=== PATIENT | male | born 1940 | race Caucasian/White ===

== ENCOUNTER 2017-04-16 12:38 | Inpatient (IN) | payer MEDICARE, BC ==
[~2017-04-16] VITALS: Ht 175.3 cm; Wt 115.0 kg
[~2017-04-16 12:38] MED LIST: APIX5TAB PO; ATOR80TA41 PO; BENI20TA26 PO; DULO20 PO; FOLI5CAP PO; GABA600T PO; HUMALOGP SQ; LANO0.2510 PO; LANTUSP SQ; LEVO.1 PO; LORTA5 PO; MAGN400T PO; MECL-62 PO; OMPR20CCR PO; TRAV0.00 EACH EYE; VICT18IN SQ; VITA200017 PO
[2017-04-16] MEDS ORDERED: IOHEXOL 350 MG/ML 10 ML VIAL (for RAD DIAG) IVCONTRAST ONE (12:39)
[2017-04-16] MEDS ORDERED: SODIUM CHLORIDE 0.9% FLUSH 10 ML FLUSH IV FLUSH PRN (13:00)
[2017-04-16] MEDS ORDERED: MORPHINE SULFATE 4 MG/ML INJ IV PUSH ONE (13:00)
[2017-04-16] MEDS ORDERED: ONDANSETRON HCL 4 MG/2 ML VIAL IVP ONE (13:00)
--- NOTE | 2017-04-16 13:14 | PD ---
HPI Chief Complaint: Abdominal Pain Time Seen by Provider: 12:48 Travel History International Travel<30 days: No Contact w/Intl Traveler<30days: No History of Present Illness HPI 76 YO M with PMH of ankylosing spondylosis, CVA, DM, a fib, HTN on Eliquis presents to the ED for evaluation of 2 week history of abdominal pain. Patient states that the pain is crampy in nature. Moves throughout the abdomen. No alleviating or exacerbating factors reported. Patient endorses occasional constipation, last BM 2 days ago. He states " I never look at my stool." He endorses increased abdominal bloating, decreased appetite, nausea. He denies melena, hematochezia. He denies CP, SOB, vomiting. He endorses history of laparoscopic appendectomy. He was seen at his endocrinologists office this morning. They noted jaundice and called EMS to transport the patient to the ED. PFSH Past Medical History Hx Anticoagulant Therapy: Yes (ELIQUIS) Arthritis: Yes (ANKYLOSING SPONDYLITIS AND CONNECTIVE TISSUE.) Asthma: Yes Atrial Fibrillation: Yes Anxiety: Yes Depression: Yes Heart Rhythm Problems: Yes (A-FIB) Cancer: Yes (SKIN CANCER) Cardiac Catheterization: Yes Cardiovascular Problems: Yes High Cholesterol: Yes Chemotherapy: No Chest Pain: Yes Congestive Heart Failure: Yes COPD: Yes Cerebrovascular Accident: Yes Coronary Artery Disease: Yes Diabetes: Yes Diminished Hearing: No Endocrine: Yes Gastrointestinal Disorders: Yes GERD: Yes (TAKES PRILOSEC) Glaucoma: Yes Genitourinary: Yes Headaches: Yes (ONCE IN A WHILE) Hiatal Hernia: Yes Hypertension: Yes (UNDER CONTROL) Immune Disorder: No Kidney Stones: No Musculoskeletal: Yes Neurologic: No Psychiatric: Yes (1970S) Reproductive: No Respiratory: Yes Radiation Therapy: No Seizures: No Sickle Cell Disease: No Sleep Apnea: Yes Thyroid Disease: Yes (HYPO) Ulcer: No Past Surgical History Abdominal Surgery: Yes (PROSTATE BIOPSY) Arteriovenous Shunt: No Cardiac Surgery: Yes (ANGIOPLASTY) Ear Surgery: No Endocrine Surgery: No Eye Surgery: Yes (LASER BOTH EYES FOR GLAUCOMA) Genitourinary Surgery: No Gynecologic Surgery: No Insulin Pump: Yes Oral Surgery: Yes (TEETH EXTRACTION) Thoracic Surgery: No Other Surgery: Yes (SKIN CANCER REMOVED FROM CHEEK.) Social History Alcohol Use: No Tobacco Use: No Substance Use: No Allergies-Medications (Allergen,Severity, Reaction): Coded Allergies: No Known Allergies (Verified , 10/29/14) Reported Meds & Prescriptions Reported Meds & Active Scripts Active Reported Humalog Inj (Insulin Human Lispro) 1,000 Unit/10 Ml Vial 70 Units SQ BID Lantus Inj (Insulin Glargine) 1,000 Unit/10 Ml Vial 70 Units SQ BID Methotrexate 25 mg/ml Vial (Methotrexate Sodium/Pf) 25 Mg/Ml Vial 6 SQ Synthroid (Levothyroxine Sodium) 150 Mcg Tab 150 Mcg PO DAILY Olmesartan-Hydrochlorothiazide 20-12.5 Mg Tab 1 Tab PO DAILY Meclizine (Meclizine HCl) 25 Mg Tab 25 Mg PO TID PRN Magnesium (Magnesium Oxide) 400 Mg Tablet 1 Tab PO BID Hydrocodone-Acetaminophen 10-325 mg Tab 1 Tab PO Q8HR PRN Gabapentin 600 Mg Tab 600 Mg PO TID Folic Acid 0.8 Mg Tab 1,000 Mcg PO DAILY Eliquis (Apixaban) 5 Mg Tab 5 Mg PO BID Duloxetine DR (Duloxetine HCl) 60 Mg Capdr 60 Mg PO DAILY Donepezil 10 Mg Tab 10 Mg PO DAILY Diltiazem CD 24 HR 240 Mg Caper 240 Mg PO DAILY Digoxin 0.25 Mg Tab 0.25 Mg PO DAILY Atorvastatin (Atorvastatin Calcium) 40 Mg Tab 40 Mg PO HS Review of Systems Except as stated in HPI: all other systems reviewed are Neg Physical Exam Narrative GENERAL: Well-nourished, well-developed white male in no acute distress. SKIN: Focused skin assessment warm/dry, jaundiced HEAD: Normocephalic. EYES:+ scleral icterus. No injection or drainage. NECK: Supple, trachea midline. No JVD or lymphadenopathy. CARDIOVASCULAR: Regular rate and rhythm without murmurs, gallops, or rubs. RESPIRATORY: Breath sounds equal bilaterally. No accessory muscle use. GASTROINTESTINAL: Abdomen protuberant, diffusely tender. Active bowel sounds RECTAL EXAM: No masses or tenderness, stool is currently colored. Guaiac positive. MUSCULOSKELETAL: No cyanosis, or edema. BACK: Nontender without obvious deformity. No CVA tenderness. Data Data Last Documented VS Vital Signs Date Time Temp Pulse Resp B/P (MAP) Pulse Ox O2 Delivery O2 Flow Rate FiO2 04/16/17 16:08 97.6 102 17 142/55 (84) 98 Room Air Orders Orders Complete Blood Count With Diff (04/16/17 12:57) Comprehensive Metabolic Panel (04/16/17 12:57) Lipase (04/16/17 12:57) Lactic Acid (04/16/17 12:57) Prothrombin Time / Inr (Pt) (04/16/17 12:57) Act Partial Throm Time (Ptt) (04/16/17 12:57) Urinalysis - C+S If Indicated (04/16/17 12:57) Ct Abd/Pel W Iv Contrast(Rout) (04/16/17 12:57) Iv Access Insert/Monitor (04/16/17 12:57) Ecg Monitoring (04/16/17 12:57) Oximetry (04/16/17 12:57) Morphine Inj (Morphine Inj) (04/16/17 13:00) Ondansetron Inj (Zofran Inj) (04/16/17 13:00) Sodium Chloride 0.9% Flush (Ns Flush) (04/16/17 13:00) Sodium Chlor 0.9% 1000 Ml Inj (Ns 1000 M (04/16/17 13:30) Iohexol 350 Inj (Omnipaque 350 Inj) (04/16/17 12:39) Consult Gastroenterology (04/16/17 ) Consult Medical Oncology (04/16/17 ) Admit Order (Ed Use Only) (04/16/17 16:14) Type And Screen (04/16/17 16:14) Labs Laboratory Tests Test 04/16/17 13:35 04/16/17 13:37 04/16/17 15:44 White Blood Count 13.6 TH/MM3 Red Blood Count 2.81 MIL/MM3 Hemoglobin 8.1 GM/DL Hematocrit 24.8 % Mean Corpuscular Volume 88.4 FL Mean Corpuscular Hemoglobin 28.7 PG Mean Corpuscular Hemoglobin Concent 32.5 % Red Cell Distribution Width 18.5 % Platelet Count 387 TH/MM3 Mean Platelet Volume 7.5 FL Neutrophils (%) (Auto) 69.9 % Lymphocytes (%) (Auto) 13.0 % Monocytes (%) (Auto) 13.8 % Eosinophils (%) (Auto) 2.9 % Basophils (%) (Auto) 0.4 % Neutrophils # (Auto) 9.5 TH/MM3 Lymphocytes # (Auto) 1.8 TH/MM3 Monocytes # (Auto) 1.9 TH/MM3 Eosinophils # (Auto) 0.4 TH/MM3 Basophils # (Auto) 0.1 TH/MM3 CBC Comment DIFF FINAL Differential Comment Prothrombin Time 12.5 SEC Prothromb Time International Ratio 1.2 RATIO Activated Partial Thromboplast Time 28.2 SEC Lactic Acid Level 1.7 mmol/L Blood Urea Nitrogen 31 MG/DL Creatinine 1.43 MG/DL Random Glucose 123 MG/DL Total Protein 6.1 GM/DL Albumin 2.4 GM/DL Calcium Level 9.1 MG/DL Alkaline Phosphatase 338 U/L Aspartate Amino Transf (AST/SGOT) 87 U/L Alanine Aminotransferase (ALT/SGPT) 71 U/L Total Bilirubin 5.4 MG/DL Sodium Level 133 MEQ/L Potassium Level 4.9 MEQ/L Chloride Level 101 MEQ/L Carbon Dioxide Level 20.7 MEQ/L Anion Gap 11 MEQ/L Estimat Glomerular Filtration Rate 48 ML/MIN Lipase 80 U/L Urine Color YELLOW Urine Turbidity CLEAR Urine pH 5.5 Urine Specific [place] 1.014 Urine Protein NEG mg/dL Urine Glucose (UA) NEG mg/dL Urine Ketones NEG mg/dL Urine Occult Blood NEG Urine Nitrite NEG Urine Bilirubin SMALL Urine Urobilinogen LESS THAN 2.0 MG/DL Urine Leukocyte Esterase NEG Urine RBC LESS THAN 1 /hpf Urine WBC 1 /hpf Urine Hyaline Casts 1 /lpf Urine Mucus FEW /lpf Microscopic Urinalysis Comment CULT NOT INDICATED MDM Medical Decision Making Medical Screen Exam Complete: Yes Emergency Medical Condition: Yes Medical Record Reviewed: Yes Differential Diagnosis cholecystitis versus biliary colic versus liver failure versus bowel obstruction versus other Narrative Course 76 YO M with PMH of ankylosing spondylosis, CVA, DM, a fib, HTN on Eliquis presents to the ED for evaluation of 2 week history of abdominal pain. Pain is crampy in nature. Patient endorses occasional constipation, last BM 2 days ago. He endorses increased abdominal bloating, decreased appetite, nausea. He denies melena, hematochezia. He denies CP, SOB, vomiting. He endorses history of laparoscopic appendectomy. The patient's afebrile, BP 129/56 on presentation. On physical exam this is a jaundiced white male in no acute distress. Belly is firm and bloated, diffusely tender. Stool is clear-colored , guaiac positive. IV was established. Patient was administered 1 L normal saline, 4 mg Zofran, 4 mg morphine IV. 04/16/17 13:35 04/16/17 13:37 Total Protein 6.1 L, Albumin 2.4 L, Calcium Level 9.1, Alkaline Phosphatase 338 H, Aspartate Amino Transf (AST/SGOT) 87 H, Alanine Aminotransferase (ALT/SGPT) 71, Total Bilirubin 5.4 H COAGS: INR 1.2. UA: No culture indicated CT ABDOMEN AND PELVIS: Large pancreatic head mass with numerous metastatic lesions throughout the liver. Minimal ascites. I discussed the results of the workup with the patient as well as my recommendation for admission. Patient's agreeable to this plan. He is administered a second dose of morphine. GI and oncology consult placed. I spoke with Dr. العراقي who agrees to accept the patient to the medicine service. Please see GI, oncology and medicine notes for disposition. [facility] Point of Care Internal Pos. & Neg. Controls: Passed Fecal Specimen Occult Blood: Positive Juliann Cordero Apr 16, 2017 13:14
[2017-04-16 13:22] VITALS: BP 129/56; PULSE 75; RESP 19; TEMP 99.1; O2SAT 98
[2017-04-16] MEDS ORDERED: SODIUM CHLOR 0.9% 1000 ML INJ 1,000 ML IV ONE (13:30)
[2017-04-16 14:16] LABS: AUTOMATED NEUTROPHIL # 9.5 TH/MM3 (1.8-7.7); BASOPHIL # 0.1 TH/MM3 (0-0.2); BASOPHIL % 0.4 % (0.0-2.0); EOSINOPHIL # 0.4 TH/MM3 (0-0.4); EOSINOPHIL % 2.9 % (0.0-4.0); HEMATOCRIT 24.8 % (39.0-51.0); HEMOGLOBIN 8.1 GM/DL (13.0-17.0); LYMPHOCYTE # 1.8 TH/MM3 (1.0-4.8); MEAN CELL VOLUME 88.4 FL (80.0-100.0); MEAN CORPUSCULAR HEMOGLOBIN 28.7 PG (27.0-34.0); MEAN CORPUSCULAR HGB CONC 32.5 % (32.0-36.0); MEAN PLATELET VOLUME 7.5 FL (7.0-11.0); MONO % 13.8 % (0.0-8.0); MONOCYTE # 1.9 TH/MM3 (0-0.9); NEUT % 69.9 % (16.0-70.0); PLATELET COUNT 387 TH/MM3 (150-450); RED BLOOD COUNT 2.81 MIL/MM3 (4.50-5.90); RED CELL DISTRIBUTION WIDTH 18.5 % (11.6-17.2); WHITE BLOOD COUNT 13.6 TH/MM3 (4.0-11.0)
[2017-04-16 14:24] LABS: INTERNATIONAL NORMALIZED RATIO 1.2 RATIO; PROTHROMBIN TIME - PATIENT 12.5 SEC (9.8-11.6)
[2017-04-16 14:29] LABS: ALBUMIN 2.4 GM/DL (3.4-5.0); AST (GOT) 87 U/L (15-37); BICARBONATE 20.7 MEQ/L (21.0-32.0); BLOOD UREA NITROGEN 31 MG/DL (7-18); CALCIUM 9.1 MG/DL (8.5-10.1); CHLORIDE 101 MEQ/L (98-107); CREATININE 1.43 MG/DL (0.60-1.30); GLOMERULAR FILTRATION RATE 48 ML/MIN (>89); GLUCOSE,RANDOM 123 MG/DL (74-106); SODIUM (NA) 133 MEQ/L (136-145)
[2017-04-16 14:31] LABS: ALT (GPT) 71 U/L (12-78)
[2017-04-16 14:32] LABS: ALKALINE PHOSPHATASE 338 U/L (45-117); TOTAL BILIRUBIN ADULT 5.4 MG/DL (0.2-1.0); TOTAL PROTEIN 6.1 GM/DL (6.4-8.2)
--- NOTE | 2017-04-16 15:57 | RADRPT ---
EXAM DATE/TIME: 04/16/2017 15:01 [facility] COMPARISON: No previous studies available for comparison. INDICATIONS : Diffussed abdomen pain, bloating, jaundice IV CONTRAST: 70 cc Omnipaque 350 (iohexol) IV ORAL CONTRAST: No oral contrast ingested. RADIATION DOSE: 25.11 CTDIvol (mGy) MEDICAL HISTORY : Cardiovascular disease. Hypertension. Chronic obstructive pulmonary disease.Diabetes,hiatal hernia SURGICAL HISTORY : None. ENCOUNTER: Initial ACUITY: 1 day PAIN SCALE: 7/10 LOCATION: Abdomen TECHNIQUE: Volumetric scanning of the abdomen and pelvis was performed. Using automated exposure control and ad justment of the mA and/or kV according to patient size, radiation dose was kept as low as reasonably achievable to obtain optimal diagnostic quality images. DICOM format image data is available electro nically for review and comparison. FINDINGS: LOWER LUNGS: The visualized lower lungs are clear. LIVER: Numerous low density metastatic lesions throughout the liver. There is no dilation of the biliary tr ee. No calcified gallstones. Minimal ascites. SPLEEN: Normal size without lesion. PANCREAS: Large pancreatic head mass measuring 5.7 x 6.4 x 6.0 cm. Atrophic distal body and tail with dilated d istal main pancreatic duct. KIDNEYS: Normal in size and shape. There is no mass, stone or hydronephrosis. Exophytic left renal cyst again noted. ADRENAL GLANDS: Within normal limits. VASCULAR: There is no aortic aneurysm. BOWEL/MESENTERY: The stomach, small bowel, and colon demonstrate no acute abnormality. There is no free intraperitone al air or fluid. ABDOMINAL WALL: Within normal limits. RETROPERITONEUM: There is no lymphadenopathy. BLADDER: No wall thickening or mass. REPRODUCTIVE: Within normal limits. INGUINAL: There is no lymphadenopathy or hernia. MUSCULOSKELETAL: Degenerative changes thoracolumbar spine. CONCLUSION: 1. Large pancreatic head mass with numerous metastatic lesions throughout the liver. If tissue diagno sis is needed then biopsy of liver lesions could be obtained percutaneously under CT guidance. 2. Minimal ascites. Vinod Hernandez MD on April 16, 2017 at 15:53 Board Certified Radiologist. This report was verified electronically.
[2017-04-16 16:08] VITALS: BP 142/55; PULSE 102; RESP 17; TEMP 97.6; O2SAT 98
[2017-04-16] MEDS ORDERED: APIX5TAB PO (16:08)
[2017-04-16] MEDS ORDERED: FOLI800T PO (16:08)
[2017-04-16] MEDS ORDERED: MAGN400T24 PO (16:08)
[2017-04-16] MEDS ORDERED: DONE10TA7 PO (16:08)
[2017-04-16] MEDS ORDERED: LANTUS2P SQ (16:08)
[2017-04-16] MEDS ORDERED: OLME1TAB5 PO (16:08)
[2017-04-16] MEDS ORDERED: MECL-62 PO (16:08)
[2017-04-16] MEDS ORDERED: HYDR-3583 PO (16:08)
[2017-04-16] MEDS ORDERED: ATOR40TA16 PO (16:08)
[2017-04-16] MEDS ORDERED: GABA600T PO (16:08)
[2017-04-16] MEDS ORDERED: DILT240C44 PO (16:08)
[2017-04-16] MEDS ORDERED: METH25IN11 SQ (16:08)
[2017-04-16] MEDS ORDERED: LEVO.15 PO (16:08)
[2017-04-16] MEDS ORDERED: HUMALOG SQ (16:08)
[2017-04-16] MEDS ORDERED: DIGO0.25 PO (16:08)
[2017-04-16] MEDS ORDERED: DULO1CAP3 PO (16:08)
[2017-04-16 16:13] LABS: BILIRUBIN, URINE SMALL (NEG); BLOOD, URINE NEG (NEG); GLUCOSE,URINE NEG (NEG); HYALINE CAST, URINE 1 /lpf (RARE); KETONE, URINE NEG (NEG); MUCUS URINE FEW /lpf (OCC); NITRITE,URINE NEG (NEG); PH, URINE 5.5 (5.0-8.5); URINE COLOR YELLOW (YELLW/STRAW); URINE LEUKOCYTE ESTERASE NEG (NEG)
[2017-04-16] MEDS ORDERED: MORPHINE SULFATE 2 MG/ML INJ IV PUSH ONE (16:30)
[2017-04-16] MEDS ORDERED: LACTULOSE SYRUP 20 GM/30 ML CUP PO PRN (17:00)
[2017-04-16] MEDS ORDERED: BISACODYL 10 MG SUPP RECTAL PRN (17:00)
[2017-04-16] MEDS ORDERED: NALOXONE HCL 0.4 MG/ML AMP IV PUSH PRN (17:00)
[2017-04-16] MEDS ORDERED: MAGNESIUM HYDROXIDE SUSP 30 ML CUP PO PRN (17:00)
[2017-04-16] MEDS ORDERED: ONDANSETRON HCL 4 MG/2 ML VIAL IVP PRN (17:00)
[2017-04-16] MEDS ORDERED: SENNOSIDES 8.6 MG TAB PO PRN (17:00)
[2017-04-16] MEDS: SODIUM CHLOR 0.9% 1000 ML INJ 1,000 ML IV SCH (17:25)
--- NOTE | 2017-04-16 18:58 | HHI.HP ---
[facility] Physician Pedro Braxton M.D. Admission Diagnosis pancreatic mass, liver metastasis, hyperbilrubinemia, GI bleed Diagnoses: (1) Pancreatic mass (2) Liver metastases (3) Anemia (4) Acute kidney injury (5) Hyponatremia (6) Elevated LFTs (7) Hypertension (8) Atrial fibrillation Chief Complaint: abdominal pain Travel History International Travel<30 Days: No Contact w/Intl Traveler <30 Da: No Traveled to Known Affected Are: No History of Present Illness The patient is a 76-year-old male with multiple medical problems who presented to the emergency department with complaint of abdominal pain over the past few days. He states that the pain has been getting worse, but his chronic arthritis pain has still been worse than the abdominal pain. He denies nausea or vomiting. He has had some constipation over the past few days. Denies melena, hematochezia. Denies chest pain. Reports chronic dyspnea. The patient was seen today by his transliterator and referred to the emergency department because of jaundice. He states that his abdomen has become more distended over the past few days as well. Review of Systems Constitutional: DENIES: Fever, Chills, Night Sweats Eyes: DENIES: Blurred vision, Vision loss Ears, nose, mouth, throat: DENIES: Hearing loss Respiratory: DENIES: Cough, Wheezing, Sputum production, Shortness of breath Cardiovascular: DENIES: Chest pain, Palpitations, Dyspnea on Exertion, Lower Extremity Edema Gastrointestinal: COMPLAINS OF: Abdominal pain, Constipation, DENIES: Diarrhea , Nausea, Vomiting Genitourinary: DENIES: Urinary frequency, Urinary incontinence, Urgency, Hematuria, Dysuria, Nocturia Musculoskeletal: COMPLAINS OF: Joint pain, DENIES: Muscle aches Integumentary: DENIES: Pruritus, Rash Hematologic/lymphatic: DENIES: Bruising Neurologic: DENIES: Headache Past Family Social History Past Medical History Ankylosing spondylitis Asthma Atrial fibrillation Anxiety/depression History of skin cancer Hyperlipidemia History of CVA Coronary artery disease COPD Congestive heart failure Diabetes mellitus GERD Hypertension Hypothyroidism Sleep apnea Past Surgical History Prostate biopsy Angioplasty Laser surgery for glaucoma in both eyes Tooth extraction Skin cancer removal Appendectomy Reported Medications Humalog Inj (Insulin Human Lispro) 1,000 Unit/10 Ml Vial 70 Units SQ BID Lantus Inj (Insulin Glargine) 1,000 Unit/10 Ml Vial 70 Units SQ BID Methotrexate 25 mg/ml Vial (Methotrexate Sodium/Pf) 25 Mg/Ml Vial 6 SQ Synthroid (Levothyroxine Sodium) 150 Mcg Tab 150 Mcg PO DAILY Olmesartan-Hydrochlorothiazide 20-12.5 Mg Tab 1 Tab PO DAILY Meclizine (Meclizine HCl) 25 Mg Tab 25 Mg PO TID PRN Magnesium (Magnesium Oxide) 400 Mg Tablet 1 Tab PO BID Hydrocodone-Acetaminophen 10-325 mg Tab 1 Tab PO Q8HR PRN Gabapentin 600 Mg Tab 600 Mg PO TID Folic Acid 0.8 Mg Tab 1,000 Mcg PO DAILY Eliquis (Apixaban) 5 Mg Tab 5 Mg PO BID Duloxetine DR (Duloxetine HCl) 60 Mg Capdr 60 Mg PO DAILY Donepezil 10 Mg Tab 10 Mg PO DAILY Diltiazem CD 24 HR 240 Mg Caper 240 Mg PO DAILY Digoxin 0.25 Mg Tab 0.25 Mg PO DAILY Atorvastatin (Atorvastatin Calcium) 40 Mg Tab 40 Mg PO HS Allergies: Coded Allergies: No Known Allergies (Verified , 10/29/14) Family History Heart disease Social History Remote history of smoking pipes and cigars occasionally. Rare alcohol use. Denies illicit drug use. Physical Exam Vital Signs Vital Signs Date Time Temp Pulse Resp B/P (MAP) Pulse Ox O2 Delivery O2 Flow Rate FiO2 04/16/17 16:08 97.6 102 17 142/55 (84) 98 Room Air 04/16/17 13:22 99.1 75 19 129/56 (80) 98 Physical Exam GENERAL: Obese elderly male in no acute distress. Jaundiced. HEENT: Normocephalic, atraumatic. Pupils equal, round and reactive. Extraocular movements intact. Scleral icterus is noted. No injection or drainage. Oropharynx is clear. Mucous membranes are moist. CARDIOVASCULAR: Regular rate and rhythm without murmurs, gallops, or rubs. RESPIRATORY: Clear to auscultation. No wheezes, rales, or rhonchi. Breathing is non-labored. GASTROINTESTINAL: Abdomen soft, mild diffuse tenderness to palpation without rebound or guarding. Moderately distended. Ascites noted. EXTREMITIES: No lower extremity edema. No calf tenderness. PSYCH: Alert and oriented x 3. Laboratory Laboratory Tests Test 04/16/17 13:35 04/16/17 13:37 04/16/17 15:44 White Blood Count 13.6 Red Blood Count 2.81 Hemoglobin 8.1 Hematocrit 24.8 Mean Corpuscular Volume 88.4 Mean Corpuscular Hemoglobin 28.7 Mean Corpuscular Hemoglobin Concent 32.5 Red Cell Distribution Width 18.5 Platelet Count 387 Mean Platelet Volume 7.5 Neutrophils (%) (Auto) 69.9 Lymphocytes (%) (Auto) 13.0 Monocytes (%) (Auto) 13.8 Eosinophils (%) (Auto) 2.9 Basophils (%) (Auto) 0.4 Neutrophils # (Auto) 9.5 Lymphocytes # (Auto) 1.8 Monocytes # (Auto) 1.9 Eosinophils # (Auto) 0.4 Basophils # (Auto) 0.1 CBC Comment DIFF FINAL Differential Comment Prothrombin Time 12.5 Prothromb Time International Ratio 1.2 Activated Partial Thromboplast Time 28.2 Lactic Acid Level 1.7 Blood Urea Nitrogen 31 Creatinine 1.43 Random Glucose 123 Total Protein 6.1 Albumin 2.4 Calcium Level 9.1 Alkaline Phosphatase 338 Aspartate Amino Transf (AST/SGOT) 87 Alanine Aminotransferase (ALT/SGPT) 71 Total Bilirubin 5.4 Sodium Level 133 Potassium Level 4.9 Chloride Level 101 Carbon Dioxide Level 20.7 Anion Gap 11 Estimat Glomerular Filtration Rate 48 Lipase 80 Urine Color YELLOW Urine Turbidity CLEAR Urine pH 5.5 Urine Specific [place] 1.014 Urine Protein NEG Urine Glucose (UA) NEG Urine Ketones NEG Urine Occult Blood NEG Urine Nitrite NEG Urine Bilirubin SMALL Urine Urobilinogen LESS THAN 2.0 Urine Leukocyte Esterase NEG Urine RBC LESS THAN 1 Urine WBC 1 Urine Hyaline Casts 1 Urine Mucus FEW Microscopic Urinalysis Comment CULT NOT INDICATED Result Diagram: 04/16/17 1335 04/16/17 1337 Imaging Last Impressions Abdomen/Pelvis CT 04/16/17 1257 Signed Impressions: Service Date/Time: April 15:01 - CONCLUSION: 1. Large pancreatic head mass with numerous metastatic lesions throughout the liver. If tissue diagnosis is needed then biopsy of liver lesions could be obtained percutaneously under CT guidance. 2. Minimal ascites. MD Hugh Woods VTE Risk Assessment Hugh VTE Risk Assessment: Mod/High Risk (score >= 2) VTE Pharm Contraindication: Edmundorini Risk Assessment Model Point Value = 1 Point Value = 2 Point Value = 3 Point Value = 5 Age 41-60 Minor surgery BMI > 25 kg/m2 Swollen legs Varicose veins or History of unexplained or recurrent spontaneous Oral contraceptives or hormone replacement Sepsis (< 1 month) Serious lung disease, including pneumonia (< 1 month) Abnormal pulmonary function Acute myocardial infarction Congestive heart failure (< 1 month) History of inflammatory bowel disease Medical patient at bed rest Age 61-74 Arthroscopic surgery Major open surgery (> 45 min) Laparoscopic surgery (> 45 min) Malignancy Confined to bed (> 72 hours) Immobilizing plaster cast Central venous access Age >= 75 History of VTE Family history of VTE Factor V Leiden Prothrombin [id number] Lupus anticoagulant Anticardiolipin antibodies Elevated serum homocysteine Heparin-induced thrombocytopenia Other congenital or acquired thrombophilia Stroke (< 1 month) Elective arthroplasty Hip, pelvis, or leg fracture Acute spinal cord injury (< 1 month) Prophylaxis Regimen Total Risk Factor Score Risk Level Prophylaxis Regimen 0-1 Low Early ambulation 2 Moderate Order ONE of the following: *Sequential Compression Device (SCD) *Heparin 5000 units SQ BID 3-4 Higher Order ONE of the following medications: *Heparin 5000 units SQ TID *Enoxaparin/Lovenox 40 mg SQ daily (WT < 150 kg, CrCl > 30 mL/min) *Enoxaparin/Lovenox 30 mg SQ daily (WT < 150 kg, CrCl > 10-29 mL/min) *Enoxaparin/Lovenox 30 mg SQ BID (WT < 150 kg, CrCl > 30 mL/min) AND/OR *Sequential Compression Device (SCD) 5 or more Highest Order ONE of the following medications: *Heparin 5000 units SQ TID (Preferred with Epidurals) *Enoxaparin/Lovenox 40 mg SQ daily (WT < 150 kg, CrCl > 30 mL/min) *Enoxaparin/Lovenox 30 mg SQ daily (WT < 150 kg, CrCl > 10-29 mL/min) *Enoxaparin/Lovenox 30 mg SQ BID (WT < 150 kg, CrCl > 30 mL/min) AND *Sequential Compression Device (SCD) Assessment and Plan Assessment and Plan 1. Abdominal pain, pancreas mass: Patient has recently developed abdominal pain and distention. CT of the abdomen/pelvis shows mass in the pancreatic head with liver metastases. Continue pain control. GI and medical oncology consulted. Consult palliative care. Discussed with Dr. Briseno. 2. Diabetes mellitus: Diabetic diet. Continue home insulin regimen. 3. Atrial fibrillation: Continue diltiazem, digoxin. Hold Eliquis for possible biopsy. 4. History of seizures: Continue gabapentin. 5. Hypertension: Continue home medications. 6. Hypothyroidism: Continue Synthroid. 7. Hyperlipidemia, coronary artery disease: Hold statin secondary to liver disease. 8. DVT prophylaxis: SCDs, LAURIE prakash. Hold Eliquis in anticipation of possible biopsy Code Status CODE STATUS discussed at length with the patient and his family. The patient would like to remain FULL CODE at this time. He will discuss this further with oncology and palliative care. He did indicate to me that he would not like to be maintained on a ventilator for an extended period of time. Mo العراقي MD Apr 16, 2017 18:58
[2017-04-16] MEDS ORDERED: MECLIZINE HCL 25 MG TAB PO PRN (19:15)
[2017-04-16] MEDS ORDERED: GLUCAGON 1 MG/ML VIAL OTHER PRN (19:15)
[2017-04-16] MEDS ORDERED: DEXTROSE 50% IN WATER 50 ML VIAL(D50) IV PUSH PRN (19:15)
[2017-04-16 20:00] VITALS: BP 138/60; PULSE 108; RESP 20; TEMP 97.5; O2SAT 99
--- NOTE | 2017-04-16 20:33 | MB ---
cc: María Elena Briseno MD DATE OF CONSULT: 04/16/2017 REFERRING PHYSICIAN: Dr. Bailey REASON FOR REFERRAL: ____ thank you for the consultation. A pleasant 76-year-old gentleman who has multiple medical problems including hypertension, diabetes. The patient has rheumatoid arthritis. He was not feeling well for a while. He had 2 weeks of abdominal pain. He had low blood sugar so he went to his forming operator and he was found to have significant jaundice so he was sent here for evaluation. Here was found to have jaundice. He underwent CT scan of the abdomen which showed a large mass with metastases to the liver and the patient complained of mild abdominal discomfort now. He feels very weak overall and tired. PAST MEDICAL HISTORY: Significant for arthritis, atrial fibrillation, asthma, history of cardiac catheterization, high cholesterol, congestive heart failure, CVA, glaucoma, headache, hiatal hernia, hypertension, sleep apnea prostate biopsy, angioplasty, glaucoma surgery, teeth extraction, skin cancer removal. SOCIAL HISTORY: Negative for tobacco, drugs or alcohol. ALLERGIES: NO KNOWN DRUG ALLERGIES. MEDICATIONS: Reviewed in the chart. REVIEW OF SYSTEMS: All 12 points negative except HPI. PHYSICAL EXAMINATION: GENERAL: Alert, well-developed, well-nourished, no acute distress at this time. HEENT: Pupils round and reactive to light. Sclerae icteric. SKIN: Jaundiced. NECK: Supple. CHEST: Clear to auscultation and percussion. CARDIAC: Regular rate and rhythm at this time. ABDOMEN: Soft, mild diffuse tenderness, mostly in the mid epigastric area, positive bowel sounds, morbidly obese. EXTREMITIES: No edema, clubbing or cyanosis at this time. NEUROLOGIC: Intact, alert, oriented, able to communicate. No focal deficits. PSYCHOLOGIC: Appropriate. LABORATORY DATA: White count 13.6, hemoglobin 8.1, platelets 387, INR 1.2. Total bilirubin 5.4, AST 87, ALT 71, alk phos 338, lipase 80. DIAGNOSTIC DATA: CT scan showed large pancreatic head mass with numerous metastases throughout the liver. ASSESSMENT AND PLAN: A 76-year-old gentleman with pancreatic cancer with metastases with obstructive jaundice. Patient has poor prognosis and the family, including his daughters and and the patient are aware of that. We will order tumor markers, patient wants to meet with oncology service before deciding if he wants to have any further workup such as biopsy or just possible palliative. The decision will be made after that. We will follow up with you. I am not sure that the patient's elevated liver function tests are related to pancreatic head mass versus the metastases which can cause elevation of the liver function. Will see what the patient's desire is and then will see what the oncologist thinks as far as prognosis and will go from there. María Elena Briseno MD /rt , 06:19 PM , 08:32 PM
[2017-04-16] MEDS ORDERED: INSULIN LISPRO 70 UNIT SQ SCH (21:00)
[2017-04-16] MEDS: INSULIN ASPART SUPPLEMENTAL SCALE SQ SCH (21:00)
[2017-04-16] MEDS: INSULIN ASPART 1,000 UNITS/10 ML VIAL SQ SCH (21:00)
[2017-04-16] MEDS: INSULIN DETEMIR 100 UNITS/ML VIAL SQ SCH (21:00)
[2017-04-16] MEDS: DOCUSATE SODIUM 50 MG/SENNA 8.6 MG TAB PO SCH (21:49)
[2017-04-16] MEDS: MAGNESIUM OXIDE 400 MG TAB PO SCH (21:49)
--- NOTE | 2017-04-16 21:57 | MB ---
cc: Neva Carson MD,Mo Awad MD DATE OF CONSULT: 04/16/2017 REFERRING PHYSICIAN: Mo العراقي MD CHIEF COMPLAINT: Dr Dillard requested consultation for Mr. 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 HISTORY OF PRESENT ILLNESS: Mr. 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 He has been on secondary prophylaxis with Eliquis for many years. He was brought in for abdominal pain and jaundice. His thought he may have been jaundiced 2 or 3 days ago and was clearly jaundiced on the day of consultation. Imaging studies, CT scan of the abdomen on 04/16 shows a large pancreatic head mass with numerous metastatic lesions throughout the liver. There is minimal ascites. Labs show a bilirubin of 5.4, AST is 87, ALT is 71, alkaline phosphatase is 338, lipase was normal. Additional significant labs are a BUN of 31, creatinine 1.43, sodium ____, albumin 2.8. Hemoglobin 8.1, platelet count is normal, white blood cell count is elevated. On further questioning, Mr. De La Rosa has had intermittent abdominal pain. He has reflux symptoms. He has decrease in appetite, really does not feel like eating. He has weakness on the right side which is residual. He is able to get around at home with a walker or a cane. He denies any overt bleeding, no melena, no bright red blood per rectum. He is more anemic than his baseline hemoglobin from reviewing the electronic medical records. His last hemoglobin from 06/14/2015 was 11.1 and his hemoglobin on admission is 8.1. He does not have any fevers, chills or night sweats. He has no nausea, vomiting, no headaches. He had some word finding issue associated with previous stroke. The rest of his review of systems is negative. PAST MEDICAL HISTORY: 1. Ankylosing spondylitis, asthma, atrial fibrillation, anxiety/depression. 2. Hyperlipidemia. 3. History of stroke with right sided weakness. 4. Coronary artery disease. 5. COPD. 6. Diabetes. 7. Hypertension. 8. Hypothyroidism. 9. Gastroesophageal reflux disease. 10. Normocytic anemia. 11. Renal insufficiency. 12. Pancreatic mass with suspected pancreatic cancer. PAST SURGICAL HISTORY: Prostate biopsy, angioplasty, tooth extraction, skin cancer removal, appendectomy, laser surgery for glaucoma both eyes, thrombolytic therapy. FAMILY HISTORY: Father had [place] disease. Mother in her 80s. No significant family history of cancer. SOCIAL HISTORY: He is , lives with his . He denies any alcohol use or illicit drug use. He has a remote smoking history of pipes and cigars. ALLERGIES: NO KNOWN DRUG ALLERGIES. CURRENT MEDICATIONS: Include digoxin, Cardizem, Aricept, Cymbalta, folate, Neurontin, Cozaar, Microzide, Synthroid, Vonda-Colace, Levemir, Mag-Ox, NovoLog, Antivert p.r.n. PHYSICAL EXAMINATION: VITAL SIGNS: Temperature 97.6, heart rate 102, blood pressure 142/55, saturation 98%. GENERAL: Mr. De La Rosa is a well-developed obese man. He is awake, alert, edentulous. He is conversant but slow to find his words at times. HEENT: His pupils are unreactive to light and accommodation. Sclerae icteric. Oropharynx is clear. NECK: Supple. LUNGS: Clear to auscultation. CARDIOVASCULAR: Reveals rate controlled rhythm. ABDOMEN: Large and benign. There is tenderness in the left upper quadrant. EXTREMITIES: Lower extremities with chronic venous changes. Trace edema. NEUROLOGIC: With mild residual right sided weakness. IMAGING STUDIES: Described above. LABORATORY DATA: Described above. ASSESSMENT AND PLAN: Mr. De La Rosa is a 76-year-old man with multiple medical problems described above. He presents with abdominal pain, weight loss, decrease in appetite and jaundice. Imaging shows pancreatic head mass associated with liver metastatic disease. I had a lengthy discussion with Mr. De La Rosa and is family present at the consultation of suspected diagnosis of pancreatic cancer. We discussed that the liver lesions are suspicious for liver metastatic disease. The role of therapy would be for palliation of symptoms, mainly his abdominal symptoms, pain and jaundice. We discussed the option of proceeding with CT guided biopsy of liver lesion. We discussed the option of foregoing diagnostic biopsy and going into hospice. Mr. De La Rosa is interested in proceeding with biopsy and considering options for treatment. He is encouraged to keep appointment to see Dr. Briseno and his recommendations regarding his jaundice. Since he is deciding to proceed with biopsy and palliative treatment, we will refer to gastroenterology to see if evaluation could identify a lesion that might be stentable to alleviate the increase in bilirubin. Further recommendations depend on the results of the biopsy. I concern with Dr. Briseno in obtaining tumor marker. Recommend complying with endoscopic evaluation. I suspect his Eliquis is causing gastritis and producing the normocytic anemia. Iron studies would be difficult to interpret but will be obtained. We will optimize treatment of his anemia to improve his performance status and symptoms. Mr. De La Rosa's and his family's questions were answered to their satisfaction. For now we will proceed with plans for CT guided biopsy of the liver lesion. He will need to be off his Eliquis for that time period. I anticipate starting unfractionated heparin over the weekend until his biopsy on Thursday. He is on anticoagulation therapy as secondary prophylaxis for stroke in addition to his atrial fibrillation treatment. MD LEIDA Hinds/rt , 08:46 PM , 09:56 PM
[2017-04-16] MEDS: MORPHINE SULFATE 2 MG/ML INJ IV PUSH PRN (21:59)
[2017-04-16 22:08] LABS: HEMOGLOBIN 9.1 GM/DL (13.0-17.0)
[2017-04-16 22:22] LABS: CARCINOEMBRYONIC ANTIGEN 46.2 NG/ML (0.2-5.0)
[2017-04-16 23:53] LABS: CA 19-9 6866.4 U/ML (0.0-35.0)
[2017-04-17] VITALS (7 sets, daily range): BP systolic 114–153; BP diastolic 53–98; PULSE 55–113; RESP 17–20; TEMP 97.3–98.7; O2SAT 92–95
[2017-04-17] MEDS: SODIUM CHLOR 0.9% 1000 ML INJ 1,000 ML IV SCH (03:17)
[2017-04-17 05:01] LABS: INTERNATIONAL NORMALIZED RATIO 1.2 RATIO; PROTHROMBIN TIME - PATIENT 12.2 SEC (9.8-11.6)
[2017-04-17 05:04] LABS: AUTOMATED NEUTROPHIL # 11.7 TH/MM3 (1.8-7.7); BASOPHIL # 0.1 TH/MM3 (0-0.2); BASOPHIL % 0.5 % (0.0-2.0); EOSINOPHIL # 0.5 TH/MM3 (0-0.4); EOSINOPHIL % 3.1 % (0.0-4.0); HEMATOCRIT 28.3 % (39.0-51.0); HEMOGLOBIN 9.4 GM/DL (13.0-17.0); LYMPHOCYTE # 2.6 TH/MM3 (1.0-4.8); MEAN CELL VOLUME 88.8 FL (80.0-100.0); MEAN CORPUSCULAR HEMOGLOBIN 29.4 PG (27.0-34.0); MEAN CORPUSCULAR HGB CONC 33.1 % (32.0-36.0); MEAN PLATELET VOLUME 7.6 FL (7.0-11.0); MONO % 13.8 % (0.0-8.0); MONOCYTE # 2.4 TH/MM3 (0-0.9); NEUT % 67.6 % (16.0-70.0); PLATELET COUNT 424 TH/MM3 (150-450); RED BLOOD COUNT 3.19 MIL/MM3 (4.50-5.90); RED CELL DISTRIBUTION WIDTH 19.4 % (11.6-17.2); WHITE BLOOD COUNT 17.3 TH/MM3 (4.0-11.0)
[2017-04-17] MEDS ORDERED: LEVOTHYROXINE SODIUM 150 MCG TAB PO SCH (06:00)
[2017-04-17 06:48] LABS: BLOOD UREA NITROGEN 33 MG/DL (7-18); CREATININE 1.59 MG/DL (0.60-1.30); GLOMERULAR FILTRATION RATE 43 ML/MIN (>89); GLUCOSE,RANDOM 53 MG/DL (74-106); TOTAL PROTEIN 6.4 GM/DL (6.4-8.2)
[2017-04-17 06:49] LABS: ALBUMIN 2.5 GM/DL (3.4-5.0); ALKALINE PHOSPHATASE 382 U/L (45-117); ALT (GPT) 68 U/L (12-78); AST (GOT) 108 U/L (15-37); CALCIUM 8.8 MG/DL (8.5-10.1); CHLORIDE 106 MEQ/L (98-107); DIRECT BILIRUBIN ADULT 4.8 MG/DL (0.0-0.2); INDIRECT BILIRUBIN 1.9 MG/DL (0.0-0.8); SODIUM (NA) 136 MEQ/L (136-145); TOTAL BILIRUBIN ADULT 6.7 MG/DL (0.2-1.0)
[2017-04-17 06:50] LABS: BICARBONATE 19.6 MEQ/L (21.0-32.0)
[2017-04-17] MEDS: MORPHINE SULFATE 2 MG/ML INJ IV PUSH PRN (07:12)
[2017-04-17 07:40] LABS: BANDS 8 % (0-6); LYMPHOCYTES 16 % (9-44); MONOCYTES 7 % (0-8); NEUTROPHIL # MANUAL DIFF 12.8 TH/MM3 (1.8-7.7); OVALOCYTES 1+ (NORMAL); POLYS (SEG NEUTROPHILS) 66 % (16-70)
[2017-04-17 07:57] LABS: % SATURATION IRON PROFILE 9.9 % (20-50); FERRITIN 678 NG/ML (26-388); IRON (FE) 33 MCG/DL (65-175); TOTAL IRON BINDING CAPACITY 335 MCG/DL (250-450)
[2017-04-17] MEDS: INSULIN ASPART SUPPLEMENTAL SCALE SQ SCH ×3 (08:00→17:44)
[2017-04-17] MEDS: INSULIN DETEMIR 100 UNITS/ML VIAL SQ SCH (09:00)
[2017-04-17] MEDS: INSULIN ASPART 1,000 UNITS/10 ML VIAL SQ SCH (09:00)
[2017-04-17] MEDS ORDERED: DULoxetine HCl DR 60 MG CAP PO SCH (09:00)
[2017-04-17] MEDS ORDERED: DONEPEZIL HCL 5 MG TAB PO SCH (09:00)
[2017-04-17] MEDS ORDERED: FOLIC ACID 1 MG TAB PO SCH (09:00)
[2017-04-17] MEDS ORDERED: OLMESARTAN HYDROCHLOROTHIAZIDE PO SCH (09:00)
[2017-04-17] MEDS ORDERED: DIGOXIN 0.25 MG TAB PO SCH (09:00)
[2017-04-17] MEDS ORDERED: HYDROCHLOROTHIAZIDE 12.5 MG CAP PO SCH (09:00)
[2017-04-17] MEDS ORDERED: LOSARTAN 50 MG TAB PO SCH (09:00)
[2017-04-17] MEDS ORDERED: DILTIAZEM-CD 240 MG CAP ER PO SCH (09:00)
[2017-04-17] MEDS: MAGNESIUM OXIDE 400 MG TAB PO SCH (09:38)
[2017-04-17] MEDS: GABAPENTIN 300 MG CAP PO SCH ×2 (09:39→12:39)
[2017-04-17] MEDS: DOCUSATE SODIUM 50 MG/SENNA 8.6 MG TAB PO SCH (09:40)
[2017-04-17] MEDS ORDERED: MORPHINE SULFATE 2 MG/ML INJ IV PUSH PRN (10:45)
--- NOTE | 2017-04-17 10:46 | HHI.PR ---
Subjective Remarks Follow-up jaundice/elevated tumor markers CA-19-9,CEA/probable metastasis cancer of unknown type 04/17/17-patient seen and examined in the presence of both his and daughters. Patient complains of abdominal pain however with aggressive of humor. Patient's family is questioning whether patient should go for CT-guided liver biopsy next week. They are leaning toward possible hospice at home. Objective Vitals Vital Signs Date Time Temp Pulse Resp B/P (MAP) Pulse Ox O2 Delivery O2 Flow Rate FiO2 04/17/17 08:00 98.3 98 18 127/98 (108) 92 04/17/17 04:55 97.4 92 18 121/58 (79) 95 04/17/17 04:13 87 04/17/17 00:13 96 04/17/17 00:00 97.3 113 20 114/53 (73) 93 04/16/17 20:00 97.5 108 20 138/60 (86) 99 04/16/17 19:06 04/16/17 16:08 97.6 102 17 142/55 (84) 98 Room Air 04/16/17 13:22 99.1 75 19 129/56 (80) 98 I/O 04/16/17 04/16/17 04/16/17 04/17/17 04/17/17 04/17/17 07:00 15:00 23:00 07:00 15:00 23:00 Intake Total 1100 ml 462 ml Output Total 2 ml Balance 1100 ml 460 ml Intake IV Total 1100 ml 462 ml Output Urine Total 2 ml # Voids 1 2 # Bowel Movements 2 Result Diagram: 04/17/17 0325 04/17/17 0325 Imaging Last Impressions Abdomen/Pelvis CT 04/16/17 1257 Signed Impressions: Service Date/Time: April 15:01 - CONCLUSION: 1. Large pancreatic head mass with numerous metastatic lesions throughout the liver. If tissue diagnosis is needed then biopsy of liver lesions could be obtained percutaneously under CT guidance. 2. Minimal ascites. Vinod Hernandez MD Objective Remarks GENERAL: NAD SKIN: Warm and dry.Jaundiced HEAD: Normocephalic. EYES: + scleral icterus. No injection or drainage. NECK: Supple, trachea midline. No JVD or lymphadenopathy. CARDIOVASCULAR: Regular rate and rhythm without murmurs, gallops, or rubs. RESPIRATORY: Breath sounds equal bilaterally. No accessory muscle use. GASTROINTESTINAL: Abdomen soft, mildly tender, nondistended. +BS MUSCULOSKELETAL: No cyanosis, or edema. BACK: Nontender without obvious deformity. No CVA tenderness. A/P Problem List: (1) Pancreatic mass ICD Code: K86.9 - Disease of pancreas, unspecified (2) Liver metastases ICD Code: C78.7 - Secondary malignant neoplasm of liver and intrahepatic bile duct (3) Anemia ICD Code: D64.9 - Anemia, unspecified (4) Acute kidney injury ICD Code: N17.9 - Acute kidney failure, unspecified (5) Hyponatremia ICD Code: E87.1 - Hypo-osmolality and hyponatremia (6) Elevated LFTs ICD Code: R79.89 - Other specified abnormal findings of blood chemistry (7) Hypertension ICD Code: I10 - Hypertension Status: Acute (8) Atrial fibrillation ICD Code: I48.91 - Atrial fibrillation Status: Acute Assessment and Plan 76-year-old man with 1. Abdominal pain, pancreas mass,Elevated Tumor Markers: CT of the abdomen/pelvis shows mass in the pancreatic head with liver metastases. Patient's family is questioning whether patient should go for CT-guided liver biopsy next week. They are leaning toward possible hospice at home. Will consult hospice pending palliative care medicine Appreciate input from medical oncology, GI Plan for CT-guided liver biopsy next week 2. Diabetes mellitus: Diabetic diet. Hold home insulin regimen for BG<110 and continue with insulin sliding scale 3. Atrial fibrillation: Continue diltiazem, digoxin. Hold Eliquis for possible biopsy. Will low monocular weight heparin this weekend 4. History of seizures: Continue gabapentin. 5. Hypertension: Continue home medications. 6. Hypothyroidism: Continue Synthroid. 7. Hyperlipidemia, coronary artery disease: Continue to Hold statin secondary to liver disease. 8. DVT prophylaxis: JULIO CsLAURIE. Hold Eliquis in anticipation of possible biopsy Vinod Oseguera MD Apr 17, 2017 10:46
--- NOTE | 2017-04-17 11:21 | PD.CONS ---
Consult Service Palliative Care Consult Requested By Dr. العراقي Primary Care Physician Pedro Braxton M.D. Reason for Consultation a. To assist with evaluation and management of symptoms including: Pain b. To assist medical decision maker(s) with: better understanding of current medical conditions; weighing benefits/burdens of medical treatment options; making medical treatment decisions. HPI History of Present Illness is a 76-year-old male with a past medical history of CVA, atrial fibrillation on Eliquis, hypertension, hyperlipidemia ankylosing spondylosis, asthma, skin cancer, congestive heart failure, hypothyroidism, depression, asthma and sleep apnea. Patient was brought to the ED via EMS from his care management associate's office on 04/16/17 with complaints of worsening abdominal pain and distention that had been going on for the past 2 weeks. In the ER, patient endorsed decreased appetite, nausea and abdominal bloating. Patient had a follow up with his care management associate who referred him to the emergency room because of jaundice. 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 * Urinalysis culture not indicated. * Fecal specimen of occult blood was positive * 1 L normal saline, 4 mg morphine IVP and 4 mg of Zofran IVP administered * Patient admitted for further workup GI Dr. Briseno consulted on 04/16/[address] Carson consulted on 04/16/17 for evaluation and management of large pancreatic head mass with numerous metastatic lesions throughout the liver. Dr. Carson discussed possible options with patient inclusive of undergoing CT guided biopsy of liver lesion, palliation therapy or enrolling in hospice for comfort care only. Palliative care consulted to assist with clarification of goals of care and symptom management. Patient seen and examined in his room in the presence of his and 2 adult daughters. Patient is lethargic, oriented to self place and situation with some expressive aphasia. Patient endorsing abdominal pain as well is generalized pain from ankylosing spondylitis. Patient also endorsing poor appetite. Vital signs stable. Laboratory workup showing worsening bilirubin 6.7 from 5.4, worsening AST, alkaline phosphatase and CA 19-9. Patient has a fair understanding of his condition, and he mentioned that he does not want to continue suffering. Patient verbally designated his to make medical decisions for him since he has expressive aphasia and may not be able to fully understand and weigh in benefits as well as limitations of options offered to him. Obtained psychosocial and past medical history from family. Updated patient's family on his current medical status. Addressed code status with patient, discussed the risks, benefits and limitations of CPR given ongoing multiple comorbidities and recently noted pancreatic mass and multiple liver lesions. Patient stated that he does not want to be resuscitated and he does not want to be intubated and placed on a mechanical ventilation. Patient's and daughters are supportive of patient's decision. Discussed possible options for continuing aggressive treatment and projected outcomes. Patient wants to be comfortable and have his pain under control for whatever time he has left. Introduced hospice philosophy and benefits. Patient and his agreed to forego any aggressive treatment or any further diagnostic tests. Family requested hospice services for comfort care only. Case discussed with Dr. Oseguera and bedside RN. . Function/Cognitive Trajectory Prior to this hospitalization, patient lived at home with his and has residual right-sided weakness with expressive aphasia from a CVA he had in 2010. Patient uses a walker or cane at home, but requires assistance with almost all his ADLs from his . Patient has been losing appetite, not eating well and he has been getting weaker and weaker. . Review of Systems Constitutional: COMPLAINS OF: Fatigue, Change in appetite, Pain, Generalized weakness Eyes: DENIES: Eye inflammation Ears, nose, mouth, throat: DENIES: Nasal discharge Respiratory: COMPLAINS OF: Apneas (Patient uses BiPAP machine at home), DENIES : Cough, Shortness of breath Cardiovascular: DENIES: Chest pain, Lower Extremity Edema Gastrointestinal: COMPLAINS OF: Abdominal pain, Constipation, Nausea, Bloating , DENIES: Black stools, Bloody stools, Diarrhea, Vomiting, Vomiting blood Musculoskeletal: COMPLAINS OF: Joint pain (History of ankylosing spondylosis) Hematologic/Lymphatics: COMPLAINS OF: Bruising Neurologic: DENIES: Headache Psychiatric: COMPLAINS OF: Depression Past Family Social History Coded Allergies: No Known Allergies (Verified , 10/29/14) Past Medical History Ankylosing spondylitis Asthma Atrial fibrillation Anxiety/depression History of skin cancer Hyperlipidemia 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 Past Surgical History Prostate biopsy Angioplasty Laser surgery for glaucoma in both eyes Tooth extraction Skin cancer removal from cheek Appendectomy . Reported Medications Humalog Inj (Insulin Human Lispro) 1,000 Unit/10 Ml Vial 70 Units SQ BID Lantus Inj (Insulin Glargine) 1,000 Unit/10 Ml Vial 70 Units SQ BID Methotrexate 25 mg/ml Vial (Methotrexate Sodium/Pf) 25 Mg/Ml Vial 6 SQ Synthroid (Levothyroxine Sodium) 150 Mcg Tab 150 Mcg PO DAILY Olmesartan-Hydrochlorothiazide 20-12.5 Mg Tab 1 Tab PO DAILY Meclizine (Meclizine HCl) 25 Mg Tab 25 Mg PO TID PRN Magnesium (Magnesium Oxide) 400 Mg Tablet 1 Tab PO BID Hydrocodone-Acetaminophen 10-325 mg Tab 1 Tab PO Q8HR PRN Gabapentin 600 Mg Tab 600 Mg PO TID Folic Acid 0.8 Mg Tab 1,000 Mcg PO DAILY Eliquis (Apixaban) 5 Mg Tab 5 Mg PO BID Duloxetine DR (Duloxetine HCl) 60 Mg Capdr 60 Mg PO DAILY Donepezil 10 Mg Tab 10 Mg PO DAILY Diltiazem CD 24 HR 240 Mg Caper 240 Mg PO DAILY Digoxin 0.25 Mg Tab 0.25 Mg PO DAILY Atorvastatin (Atorvastatin Calcium) 40 Mg Tab 40 Mg PO HS . Current Medications Medications (Trade) Dose Ordered Sig/Bernice Route Start Time Stop Time Status Last Admin (NS Flush) 2 ml UNSCH PRN IV FLUSH 04/16/17 13:00 Sodium Chloride 1,000 ml @ 75 mls/hr [id number] IV 04/16/17 17:00 04/17/17 03:17 (Zofran Inj) 4 mg Q6H PRN IVP 04/16/17 17:00 (Morphine Inj) 2 mg Q4H PRN IV PUSH 04/16/17 17:00 04/17/17 07:12 (Narcan Inj) 0.4 mg UNSCH PRN IV PUSH 04/16/17 17:00 (Vonda-Colace) 1 tab BID PO 04/16/17 21:00 04/17/17 09:40 (Milk Of Magnesia Liq) 30 ml Q12H PRN PO 04/16/17 17:00 (Senokot) 17.2 mg Q12H PRN PO 04/16/17 17:00 (Dulcolax Supp) 10 mg DAILY PRN RECTAL 04/16/17 17:00 (Lactulose Liq) 30 ml DAILY PRN PO 04/16/17 17:00 04/17/17 07:16 (Lanoxin) 0.25 mg DAILY PO 04/17/17 09:00 04/17/17 09:39 (Cardizem Cd) 240 mg DAILY PO 04/17/17 09:00 04/17/17 09:40 (Aricept) 10 mg DAILY PO 04/17/17 09:00 04/17/17 09:40 (Cymbalta Dr) 60 mg DAILY PO 04/17/17 09:00 04/17/17 09:39 (Folate) 1 mg DAILY PO 04/17/17 09:00 (Neurontin) 600 mg TID PO 04/17/17 09:00 04/17/17 09:39 (Levemir Inj) 70 units Q12HR SQ 04/16/17 21:00 (Synthroid) 150 mcg DAILY@0600 PO 04/17/17 06:00 04/17/17 05:38 (Mag-Ox) 400 mg BID PO 04/16/17 21:00 04/17/17 09:38 (Antivert) 25 mg TID PRN PO 04/16/17 19:15 (D50w (Vial) Inj) 50 ml UNSCH PRN IV PUSH 04/16/17 19:15 (Glucagon Inj) 1 mg UNSCH PRN OTHER 04/16/17 19:15 (NovoLOG SUPPLEMENTAL SCALE) 1 ACHS SLIDING SCALE SQ 04/16/17 21:00 (Cozaar) 50 mg DAILY PO 04/17/17 09:00 04/17/17 09:39 (Microzide) 12.5 mg DAILY PO 04/17/17 09:00 04/17/17 09:39 (NovoLOG INJ) 70 units BID SQ 04/16/17 21:00 Family History Father - He had Mihai disease Mother in the 80s . Substance Use Tobacco: Remote history of smoking pipes and cigars Alcohol: Denies Prescription med abuse:Denies Illicits:Denies . Psychosocial History Patient was born in [place], [place]. He moved with his parents to [place] in the 1950s. Patient has been to his for 49+ years and their 50th anniversary is in this coming June. He has r adult daughters Khloe and Sharon . Patient has 3 grandsons. 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 . Spiritual/Cultural Factors Attends [employer] of [employer] . Living Will: Never completed Health Care Surrogate: Never completed Durable Power of Handmade Tile Artist: Never completed Health Care Surrogate(s): Healthcare proxy -Spouse-Carla De La Rosa [phone] . Today's verbally stated goals: Patient wants comfort care only . Family/friends goals: Patient's and 2 adult daughters want comfort care only for the patient. . Ethical and Legal Issues None identified at this time . Physical Exam Vital Signs Date Time Temp Pulse Resp B/P (MAP) Pulse Ox O2 Delivery O2 Flow Rate FiO2 04/17/17 08:00 98.3 98 18 127/98 (108) 92 04/17/17 04:55 97.4 92 18 121/58 (79) 95 04/17/17 04:13 87 04/17/17 00:13 96 04/17/17 00:00 97.3 113 20 114/53 (73) 93 04/16/17 20:00 97.5 108 20 138/60 (86) 99 04/16/17 19:06 04/16/17 16:08 97.6 102 17 142/55 (84) 98 Room Air 04/16/17 13:22 99.1 75 19 129/56 (80) 98 Exam CONSTITUTIONAL/GENERAL: This is an adequately nourished patient, in no apparent distress. Patient endorsing abdominal pain TUBES/LINES/DRAINS: PIV, SCDs SKIN: Jaundice, no rashes, or lesions. Ecchymoses on upper extremities. No wounds seen anteriorly. Skin temperature appropriate. Not diaphoretic. HEAD: Atraumatic. Normocephalic. EYES: Pupils equal and round and reactive. Extraocular motions intact. No scleral icterus. No injection or drainage. Fundi not examined. ENT: Hearing grossly normal. Nose without bleeding or purulent drainage. NECK: Trachea midline. Supple, nontender. CARDIOVASCULAR: Regular rate and rhythm without murmurs, gallops, or rubs. No JVD. Peripheral pulses symmetric. RESPIRATORY/CHEST: Symmetric, unlabored respirations. Clear to auscultation. Breath sounds equal bilaterally. No wheezes, rales, or rhonchi. Currently on CPAP machine GASTROINTESTINAL: Abdomen firm and distended. No guarding. Hypoactive Bowel sounds GENITOURINARY: Without palpable bladder distension. MUSCULOSKELETAL: Extremities without clubbing, cyanosis, or edema. Complaining of no joint pain. No calf tenderness. No mottling or clubbing. NEUROLOGICAL: Awake and alert. Has expressive aphasia motor and sensory great sense of humor. Follows commands. Right sided weakness. Moves all extremities. PSYCHIATRIC: No obvious anxiety/depression. no apparent hallucinations or other psychotic thought process. Diagnostic Tests Laboratory Laboratory Tests Test 04/16/17 13:35 04/16/17 13:37 04/16/17 15:44 04/16/17 21:34 White Blood Count 13.6 TH/MM3 (4.0-11.0) Red Blood Count 2.81 MIL/MM3 (4.50-5.90) Hemoglobin 8.1 GM/DL (13.0-17.0) 9.1 GM/DL (13.0-17.0) Hematocrit 24.8 % (39.0-51.0) 27.0 % (39.0-51.0) Mean Corpuscular Volume 88.4 FL (80.0-100.0) Mean Corpuscular Hemoglobin 28.7 PG (27.0-34.0) Mean Corpuscular Hemoglobin Concent 32.5 % (32.0-36.0) Red Cell Distribution Width 18.5 % (11.6-17.2) Platelet Count 387 TH/MM3 (150-450) Mean Platelet Volume 7.5 FL (7.0-11.0) Neutrophils (%) (Auto) 69.9 % (16.0-70.0) Lymphocytes (%) (Auto) 13.0 % (9.0-44.0) Monocytes (%) (Auto) 13.8 % (0.0-8.0) Eosinophils (%) (Auto) 2.9 % (0.0-4.0) Basophils (%) (Auto) 0.4 % (0.0-2.0) Neutrophils # (Auto) 9.5 TH/MM3 (1.8-7.7) Lymphocytes # (Auto) 1.8 TH/MM3 (1.0-4.8) Monocytes # (Auto) 1.9 TH/MM3 (0-0.9) Eosinophils # (Auto) 0.4 TH/MM3 (0-0.4) Basophils # (Auto) 0.1 TH/MM3 (0-0.2) CBC Comment DIFF FINAL Differential Comment Prothrombin Time 12.5 SEC (9.8-11.6) Prothromb Time International Ratio 1.2 RATIO Activated Partial Thromboplast Time 28.2 SEC (24.3-30.1) Lactic Acid Level 1.7 mmol/L (0.4-2.0) Blood Urea Nitrogen 31 MG/DL (7-18) Creatinine 1.43 MG/DL (0.60-1.30) Random Glucose 123 MG/DL (74-106) Total Protein 6.1 GM/DL (6.4-8.2) Albumin 2.4 GM/DL (3.4-5.0) Calcium Level 9.1 MG/DL (8.5-10.1) Alkaline Phosphatase 338 U/L (45-117) Aspartate Amino Transf (AST/SGOT) 87 U/L (15-37) Alanine Aminotransferase (ALT/SGPT) 71 U/L (12-78) Total Bilirubin 5.4 MG/DL (0.2-1.0) Sodium Level 133 MEQ/L (136-145) Potassium Level 4.9 MEQ/L (3.5-5.1) Chloride Level 101 MEQ/L (98-107) Carbon Dioxide Level 20.7 MEQ/L (21.0-32.0) Anion Gap 11 MEQ/L (5-15) Estimat Glomerular Filtration Rate 48 ML/MIN (>89) Lipase 80 U/L (73-393) Urine Color YELLOW (YELLW/STRAW) Urine Turbidity CLEAR (CLEAR) Urine pH 5.5 (5.0-8.5) Urine Specific [place] 1.014 (1.002-1.035) Urine Protein NEG mg/dL (NEG-TRACE) Urine Glucose (UA) NEG mg/dL (NEG) Urine Ketones NEG mg/dL (NEG) Urine Occult Blood NEG (NEG) Urine Nitrite NEG (NEG) Urine Bilirubin SMALL (NEG) Urine Urobilinogen LESS THAN 2.0 MG/DL (LESS Urine Leukocyte Esterase NEG (NEG) Urine RBC LESS THAN 1 /hpf (0-3) Urine WBC 1 /hpf (0-5) Urine Hyaline Casts 1 /lpf (RARE) Urine Mucus FEW /lpf (OCC) Microscopic Urinalysis Comment CULT NOT INDICATED Tumor Marker Alpha Fetoprotein 1.9 NG/ML (0.5-8.0) Carcinoembryonic Antigen 46.2 NG/ML (0.2-5.0) CA 19-9 Antigen 6866.4 U/ML (0.0-35.0) Test 04/17/17 03:25 White Blood Count 17.3 TH/MM3 (4.0-11.0) Red Blood Count 3.19 MIL/MM3 (4.50-5.90) Hemoglobin 9.4 GM/DL (13.0-17.0) Hematocrit 28.3 % (39.0-51.0) Mean Corpuscular Volume 88.8 FL (80.0-100.0) Mean Corpuscular Hemoglobin 29.4 PG (27.0-34.0) Mean Corpuscular Hemoglobin Concent 33.1 % (32.0-36.0) Red Cell Distribution Width 19.4 % (11.6-17.2) Platelet Count 424 TH/MM3 (150-450) Mean Platelet Volume 7.6 FL (7.0-11.0) Neutrophils (%) (Auto) 67.6 % (16.0-70.0) Lymphocytes (%) (Auto) 15.0 % (9.0-44.0) Monocytes (%) (Auto) 13.8 % (0.0-8.0) Eosinophils (%) (Auto) 3.1 % (0.0-4.0) Basophils (%) (Auto) 0.5 % (0.0-2.0) Neutrophils # (Auto) 11.7 TH/MM3 (1.8-7.7) Lymphocytes # (Auto) 2.6 TH/MM3 (1.0-4.8) Monocytes # (Auto) 2.4 TH/MM3 (0-0.9) Eosinophils # (Auto) 0.5 TH/MM3 (0-0.4) Basophils # (Auto) 0.1 TH/MM3 (0-0.2) CBC Comment AUTO DIFF Differential Total Cells Counted 100 Neutrophils % (Manual) 66 % (16-70) Band Neutrophils % 8 % (0-6) Lymphocytes % 16 % (9-44) Monocytes % 7 % (0-8) Eosinophils % 3 % (0-4) Neutrophils # (Manual) 12.8 TH/MM3 (1.8-7.7) Differential Comment FINAL DIFF MANUAL Platelet Estimate NORMAL (NORMAL) Platelet Morphology Comment NORMAL (NORMAL) Ovalocytes 1+ (NORMAL) Prothrombin Time 12.2 SEC (9.8-11.6) Prothromb Time International Ratio 1.2 RATIO Activated Partial Thromboplast Time 28.3 SEC (24.3-30.1) Blood Urea Nitrogen 33 MG/DL (7-18) Creatinine 1.59 MG/DL (0.60-1.30) Random Glucose 53 MG/DL (74-106) Total Protein 6.4 GM/DL (6.4-8.2) Albumin 2.5 GM/DL (3.4-5.0) Calcium Level 8.8 MG/DL (8.5-10.1) Alkaline Phosphatase 382 U/L (45-117) Aspartate Amino Transf (AST/SGOT) 108 U/L (15-37) Alanine Aminotransferase (ALT/SGPT) 68 U/L (12-78) Total Bilirubin 6.7 MG/DL (0.2-1.0) Direct Bilirubin 4.8 MG/DL (0.0-0.2) Sodium Level 136 MEQ/L (136-145) Potassium Level 5.4 MEQ/L (3.5-5.1) Chloride Level 106 MEQ/L (98-107) Carbon Dioxide Level 19.6 MEQ/L (21.0-32.0) Anion Gap 10 MEQ/L (5-15) Estimat Glomerular Filtration Rate 43 ML/MIN (>89) Iron Level 33 MCG/DL (65-175) Total Iron Binding Capacity 335 MCG/DL (250-450) Percent Iron Saturation 9.9 % (20-50) Ferritin 678 NG/ML (26-388) Indirect Bilirubin 1.9 MG/DL (0.0-0.8) CA 19-9 Antigen 6751.4 U/ML (0.0-35.0) Vitamin B12 Level GREATER THAN 2000 PG/ML Result Diagram: 04/17/17 0325 04/17/17 0325 Imaging Last Impressions Abdomen/Pelvis CT 04/16/17 1257 Signed Impressions: Service Date/Time: April 15:01 - CONCLUSION: 1. Large pancreatic head mass with numerous metastatic lesions throughout the liver. If tissue diagnosis is needed then biopsy of liver lesions could be obtained percutaneously under CT guidance. 2. Minimal ascites. Vinod Hernandez MD Patient/Family Conference Family Conference Location: Bedside Issues Discussed: * Palliative care role, purpose, approach * Additional medical, psychosocial, and spiritual history * Patients general health, functional status, and cognitive changes in the months leading up to the current hospitalization * Patient/family understanding of the current medical problems * Patient/family understanding of prognosis * Patients goals of care as best understood from advance directives and/or conversations and/or values * Current medical treatment options and benefits/burdens of those options * Likely scenarios comparing ongoing aggressive care with a transition to comfort measures only * Questions answered to the best of my ability * Introduced hospice philosophy and benefits * Palliative care contact information provided . Assessment and Plan Disease Oriented Problem List: (1) Pancreatic mass (2) Liver metastases (3) Anemia (4) Chronic atrial fibrillation Symptom Scale: (1) Pain Comment: Multifactorial. History of ankylosing spondylitis. Recent pancreatic mass in multiple lesions. . (2) Decrease in appetite 0-10 Scale: Unable to quantify Comment: Multifactorial. . Pertinent Non-Medical Issues Psychosocial:Patient was born in [place], [place]. He moved with his parents to [place] in the 1950s. Patient has been to his for 49+ years and their 50th anniversary is in this coming June. He has r adult daughters Khloe and Sharon . Patient has 3 grandsons. 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 Spiritual:Attends [employer] of [employer] Legal:No advance directives Ethical issues impacting care: None identified at this time . Important Contacts Spouse-Rj Carla [phone] Daughter- Khloe De La Rosa [phone] . Prognosis is a 76-year-old male with a past medical history of CVA, atrial fibrillation on Eliquis, hypertension, hyperlipidemia ankylosing spondylosis, asthma, skin cancer, congestive heart failure, hypothyroidism, depression, asthma and sleep apnea. Patient was brought to the ED via EMS from his care management associate's office on 03/05 with complaints of worsening abdominal pain and distention that had been going on for the past 2 weeks. Clinical course complicated with GI bleed, and pancreatic mass associated with liver metastatic disease. Code Status: No Code Plan PLAN: Legal decision maker:Patient is currently able to participate in making medical decisions. Due to expressive aphasia shared decision making with his spouse Carla De La Rosa who also would serve as his health care proxy is recommended. Goals: Comfort care only CODE STATUS: No Code DNR/DNI Patient has a fair understanding of his condition, and he mentioned that he does not want to continue suffering. Patient verbally designated his to make medical decisions for him since he has expressive aphasia and may not be able to fully understand and we benefits as well as limitations of options offered to him. Obtained psychosocial and past medical history from family. Updated patient's family on his current patient medical status. Addressed code status with patient, discussed the risks, benefits and limitations of CPR given ongoing multiple comorbidities and recent pancreatic mass and multiple liver lesions. Patient stated that he does not want to be resuscitated and he does not want to be intubated and placed on a mechanical ventilation. Patient's and daughters are supportive of patient's decision. Discussed possible options for continuing aggressive and projected outcomes. Patient wants to be comfortable and have his pain under control for whatever time he has left. Introduced hospice philosophy and benefits. Patient and his agreed to forego any aggressive treatment or any further diagnostic tests. Family requested hospice services for comfort care only. SYMPTOMS: * Decrease in appetite:Multifactorial. Patient was found to be anemic with positive stool guiac. Patient also has a pancreatic mass and multiple liver lesions. Patient complaining of bloating and constipation. Abdominal distention noted. Patient may benefit from steroids. * Pain: Multifactorial patient has history of ankylosing spondylitis, right- sided weakness from CVA, recently found pancreatic mass and multiple liver lesions. Patient's pain currently managed with morphine sulfate 2 mg q 3hrs prn. Palliative care will continue to follow the patient during hospital course as condition evolves, to assist patient/decision-maker with understanding of their medical conditions, weighing benefits/burdens of treatment options, for clarification of goals of treatment. Additionally will assist with any symptoms of palliative concern Thank you for the opportunity to participate in the care of Mr. De La Rosa. Attestation To help prompt me to consider important information that might be impacting today's encounter and assessment, information from prior notes written by myself or my colleagues may have been "brought forward" into today's note. My signature on this note, however, is an attestation that I personally performed the exam, history, and/or decision-making noted today, and, unless otherwise indicated, the interactions with patient, family, and staff as well as the review of records all occurred today. I also attest that the listed assessment and stated plan reflect my best clinical judgment today based on the combination of historical information, prior notes, and today's exam/ interactions. When time spent is documented, it refers only to time spent today by the signer, or if indicated, combined time spent today by collaborating physician/nurse practitioner. Johnnie Flood Apr 17, 2017 11:20
--- NOTE | 2017-04-17 11:42 | PD.ONC.PN ---
Subjective Subjective Remarks Afebrile overnight. Patient resting in bed in nad. eating breakfast. at bedside. states he has pain in his abdomen and all of his joints d/t arthritis. states the morphine improves his pain but requests a decrease in the interval between shots. currently he can get it every four hours and he states the pain usually returns more quickly. Objective Data Date Time Temp Pulse Resp B/P (MAP) Pulse Ox O2 Delivery O2 Flow Rate FiO2 04/17/17 08:00 98.3 98 18 127/98 (108) 92 04/17/17 04:55 97.4 92 18 121/58 (79) 95 04/17/17 04:13 87 04/17/17 00:13 96 04/17/17 00:00 97.3 113 20 114/53 (73) 93 04/16/17 20:00 97.5 108 20 138/60 (86) 99 04/16/17 19:06 04/16/17 16:08 97.6 102 17 142/55 (84) 98 Room Air 04/16/17 13:22 99.1 75 19 129/56 (80) 98 04/17/17 04/17/17 04/17/17 07:00 15:00 23:00 Intake Total 462 ml Output Total 2 ml Balance 460 ml Result Diagram: 04/17/17 0325 04/17/17 0325 Laboratory Results Laboratory Tests Test 04/16/17 13:35 04/16/17 13:37 04/16/17 15:44 04/16/17 21:34 White Blood Count 13.6 TH/MM3 Red Blood Count 2.81 MIL/MM3 Hemoglobin 8.1 GM/DL 9.1 GM/DL Hematocrit 24.8 % 27.0 % Mean Corpuscular Volume 88.4 FL Mean Corpuscular Hemoglobin 28.7 PG Mean Corpuscular Hemoglobin Concent 32.5 % Red Cell Distribution Width 18.5 % Platelet Count 387 TH/MM3 Mean Platelet Volume 7.5 FL Neutrophils (%) (Auto) 69.9 % Lymphocytes (%) (Auto) 13.0 % Monocytes (%) (Auto) 13.8 % Eosinophils (%) (Auto) 2.9 % Basophils (%) (Auto) 0.4 % Neutrophils # (Auto) 9.5 TH/MM3 Lymphocytes # (Auto) 1.8 TH/MM3 Monocytes # (Auto) 1.9 TH/MM3 Eosinophils # (Auto) 0.4 TH/MM3 Basophils # (Auto) 0.1 TH/MM3 CBC Comment DIFF FINAL Differential Comment Prothrombin Time 12.5 SEC Prothromb Time International Ratio 1.2 RATIO Activated Partial Thromboplast Time 28.2 SEC Lactic Acid Level 1.7 mmol/L Blood Urea Nitrogen 31 MG/DL Creatinine 1.43 MG/DL Random Glucose 123 MG/DL Total Protein 6.1 GM/DL Albumin 2.4 GM/DL Calcium Level 9.1 MG/DL Alkaline Phosphatase 338 U/L Aspartate Amino Transf (AST/SGOT) 87 U/L Alanine Aminotransferase (ALT/SGPT) 71 U/L Total Bilirubin 5.4 MG/DL Sodium Level 133 MEQ/L Potassium Level 4.9 MEQ/L Chloride Level 101 MEQ/L Carbon Dioxide Level 20.7 MEQ/L Anion Gap 11 MEQ/L Estimat Glomerular Filtration Rate 48 ML/MIN Lipase 80 U/L Urine Color YELLOW Urine Turbidity CLEAR Urine pH 5.5 Urine Specific [place] 1.014 Urine Protein NEG mg/dL Urine Glucose (UA) NEG mg/dL Urine Ketones NEG mg/dL Urine Occult Blood NEG Urine Nitrite NEG Urine Bilirubin SMALL Urine Urobilinogen LESS THAN 2.0 MG/DL Urine Leukocyte Esterase NEG Urine RBC LESS THAN 1 /hpf Urine WBC 1 /hpf Urine Hyaline Casts 1 /lpf Urine Mucus FEW /lpf Microscopic Urinalysis Comment CULT NOT INDICATED Tumor Marker Alpha Fetoprotein 1.9 NG/ML Carcinoembryonic Antigen 46.2 NG/ML CA 19-9 Antigen 6866.4 U/ML Test 04/17/17 03:25 White Blood Count 17.3 TH/MM3 Red Blood Count 3.19 MIL/MM3 Hemoglobin 9.4 GM/DL Hematocrit 28.3 % Mean Corpuscular Volume 88.8 FL Mean Corpuscular Hemoglobin 29.4 PG Mean Corpuscular Hemoglobin Concent 33.1 % Red Cell Distribution Width 19.4 % Platelet Count 424 TH/MM3 Mean Platelet Volume 7.6 FL Neutrophils (%) (Auto) 67.6 % Lymphocytes (%) (Auto) 15.0 % Monocytes (%) (Auto) 13.8 % Eosinophils (%) (Auto) 3.1 % Basophils (%) (Auto) 0.5 % Neutrophils # (Auto) 11.7 TH/MM3 Lymphocytes # (Auto) 2.6 TH/MM3 Monocytes # (Auto) 2.4 TH/MM3 Eosinophils # (Auto) 0.5 TH/MM3 Basophils # (Auto) 0.1 TH/MM3 CBC Comment AUTO DIFF Differential Total Cells Counted 100 Neutrophils % (Manual) 66 % Band Neutrophils % 8 % Lymphocytes % 16 % Monocytes % 7 % Eosinophils % 3 % Neutrophils # (Manual) 12.8 TH/MM3 Differential Comment FINAL DIFF MANUAL Platelet Estimate NORMAL Platelet Morphology Comment NORMAL Ovalocytes 1+ Prothrombin Time 12.2 SEC Prothromb Time International Ratio 1.2 RATIO Activated Partial Thromboplast Time 28.3 SEC Blood Urea Nitrogen 33 MG/DL Creatinine 1.59 MG/DL Random Glucose 53 MG/DL Total Protein 6.4 GM/DL Albumin 2.5 GM/DL Calcium Level 8.8 MG/DL Alkaline Phosphatase 382 U/L Aspartate Amino Transf (AST/SGOT) 108 U/L Alanine Aminotransferase (ALT/SGPT) 68 U/L Total Bilirubin 6.7 MG/DL Direct Bilirubin 4.8 MG/DL Sodium Level 136 MEQ/L Potassium Level 5.4 MEQ/L Chloride Level 106 MEQ/L Carbon Dioxide Level 19.6 MEQ/L Anion Gap 10 MEQ/L Estimat Glomerular Filtration Rate 43 ML/MIN Iron Level 33 MCG/DL Total Iron Binding Capacity 335 MCG/DL Percent Iron Saturation 9.9 % Ferritin 678 NG/ML Indirect Bilirubin 1.9 MG/DL CA 19-9 Antigen 6751.4 U/ML Vitamin B12 Level GREATER THAN 2000 PG/ML Imaging Studies Last 24 hours Impressions Abdomen/Pelvis CT 04/16/17 1257 Signed Impressions: Service Date/Time: April 15:01 - CONCLUSION: 1. Large pancreatic head mass with numerous metastatic lesions throughout the liver. If tissue diagnosis is needed then biopsy of liver lesions could be obtained percutaneously under CT guidance. 2. Minimal ascites. Vinod Hernandez MD Administered Medications Medications (Trade) Dose Ordered Sig/Bernice Route PRN Reason Start Time Stop Time Status Last Admin Dose Admin Sodium Chloride 1,000 ml @ 75 mls/hr [id number] IV 04/16/17 17:00 04/17/17 03:17 Senna/Docusate Sodium (Vonda-Colace) 1 tab BID PO 04/16/17 21:00 04/17/17 09:40 Lactulose (Lactulose Liq) 30 ml DAILY PRN PO SEVERE CONSITIPATION 04/16/17 17:00 04/17/17 07:16 Digoxin (Lanoxin) 0.25 mg DAILY PO 04/17/17 09:00 04/17/17 09:39 Diltiazem HCl (Cardizem Cd) 240 mg DAILY PO 04/17/17 09:00 04/17/17 09:40 Donepezil HCl (Aricept) 10 mg DAILY PO 04/17/17 09:00 04/17/17 09:40 Duloxetine HCl (Cymbalta Dr) 60 mg DAILY PO 04/17/17 09:00 04/17/17 09:39 Gabapentin (Neurontin) 600 mg TID PO 04/17/17 09:00 04/17/17 09:39 Levothyroxine Sodium (Synthroid) 150 mcg DAILY@0600 PO 04/17/17 06:00 04/17/17 05:38 Magnesium Oxide (Mag-Ox) 400 mg BID PO 04/16/17 21:00 04/17/17 09:38 Losartan Potassium (Cozaar) 50 mg DAILY PO 04/17/17 09:00 04/17/17 09:39 Hydrochlorothiazide (Microzide) 12.5 mg DAILY PO 04/17/17 09:00 04/17/17 09:39 Objective Remarks GENERAL: Pleasant obese elderly male, sitting up in bed, eating breakfast. SKIN: Warm and dry. HEAD: Normocephalic. EYES: No injection or drainage. NECK: Supple, trachea midline. CARDIOVASCULAR: +S1/S2 RESPIRATORY: anterior pham with occasional rhonchi. GASTROINTESTINAL: Abdomen soft, non-tender, nondistended. EXTREMITIES: No cyanosis NEUROLOGICAL: awake and alert, normal speech Assessment/Plan Problem List: (1) Pancreatic mass ICD Codes: K86.9 - Disease of pancreas, unspecified Plan: --CEA and CA 19-9 significantly elevated==high likelihood of pancreatic cancer until proven otherwise. --plan for CT guided biopsy of one of the liver lesions on Thursday --imaging studies show pancreatic mass and multiple liver lesions +h/o abdominal pain, weight loss, decrease in appetite and jaundice. Imaging shows pancreatic head mass associated with liver metastatic disease. (2) Normocytic anemia ICD Codes: D64.9 - Anemia, unspecified Plan: --anemia studies show low total iron and % saturation with a normal TIBC and an elevated ferritin. --monitor and transfuse as needed. --B12 WNL (3) Atrial fibrillation ICD Codes: I48.91 - Atrial fibrillation Status: Acute Plan: --takes Eliquis at home, will start UFH over the weekend. --is on anticoagulation therapy as secondary prophylaxis for stroke in addition to his atrial fibrillation treatment. 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 has been on secondary prophylaxis with Eliquis for many years. Plan 1. start UFH tomorrow 2. plan for CT guided liver biopsy on Thursday 3. decrease morphine interval to q 3 hours (morphine 2mg IV q 3 hours) Attending Statement The exam, history, and the medical decision-making described in the above note were completed with the assistance of the mid-level provider. I reviewed and agree with the findings presented. I attest that I had a [id number] encounter with the patient on the same day, and personally performed and documented my assessment and findings in the medical record. Pt seen and examined late in afternoon, early evening. Pt and family had decided earlier to proceed with hospice care and is apparently pending transfer to care center. Still jaundiced. Ca 19.9 elevated. Some appetite trying to eat dinner. Emotional support given. Support pt and family's wishes. Leonor Dietz Apr 17, 2017 11:42 Neva Carson MD Apr 17, 2017 18:01
[2017-04-17] MEDS ORDERED: METH0.35 (14:22)
--- NOTE | 2017-04-17 16:46 | HHI.PR ---
Addendum to Inpatient Note Addendum Reason: Additional Documentation Additional Information Patient and family agreed on discharge to Hospice care center Discharge patient to Hospice Care center Condition on discharge:Guarded Regular Diet as tolerated Ad Sophia activity Rx written:None Follow-up with primary care physician Vinod Oseguera MD Apr 17, 2017 16:46
[2017-04-17] MEDS ORDERED: GABAPENTIN 300 MG CAP PO SCH (21:00)
== END 2017-04-17 20:14 | disposition hospice, inpatient (51) | DRG 435 ==
LOC: NEPE 12:38 → NEDA 16:19 → N07A 19:04
PROVIDERS: ADMIT Hospitalist; ATTEND Hospitalist
DX: C78.7 Secondary malignant neoplasm of liver and intrahepatic bile duct (principal); K83.1 Obstruction of bile duct; N17.9 Acute kidney failure, unspecified; C25.9 Malignant neoplasm of pancreas, unspecified; I50.9 Heart failure, unspecified; I11.0 Hypertensive heart disease with heart failure; E87.1 Hypo-osmolality and hyponatremia; D64.9 Anemia, unspecified; I69.351 Hemiplegia and hemiparesis following cerebral infarction affecting right dominant side; I48.2 Chronic atrial fibrillation; J44.9 Chronic obstructive pulmonary disease, unspecified; R56.9 Unspecified convulsions; I69.320 Aphasia following cerebral infarction; M06.9 Rheumatoid arthritis, unspecified; E11.9 Type 2 diabetes mellitus without complications; M45.9 Ankylosing spondylitis of unspecified sites in spine; Z66 Do not resuscitate; Z51.5 Encounter for palliative care; E03.9 Hypothyroidism, unspecified; M19.90 Unspecified osteoarthritis, unspecified site; E78.5 Hyperlipidemia, unspecified; G47.30 Sleep apnea, unspecified; G89.29 Other chronic pain; I25.10 Atherosclerotic heart disease of native coronary artery without angina pectoris; K21.9 Gastro-esophageal reflux disease without esophagitis; K59.00 Constipation, unspecified; F32.9 Major depressive disorder, single episode, unspecified; F41.9 Anxiety disorder, unspecified; R97.8 Other abnormal tumor markers; Z79.01 Long term (current) use of anticoagulants; Z87.891 Personal history of nicotine dependence; Z79.4 Long term (current) use of insulin; Z85.828 Personal history of other malignant neoplasm of skin
CPT/HCPCS: 74177; 80053; 81001; 82105; 82248; 82378; 82607; 82728; 82948; 83540; 83550; 83605; 83690; 85007; 85014; 85018; 85025; 85027; 85610; 85730; 86301; 86850; 86900; 86901; 96361; 96374; 96375; J1815; J2270; J2405; J7030; Q9967

== ENCOUNTER 2017-04-18 04:24 | Emergency (ER) | payer MEDICARE, BC ==
[~2017-04-18] VITALS: Ht 177.8 cm; Wt 128.0 kg
[~2017-04-18 04:24] MED LIST changes: +ATOR40TA16 PO; -ATOR80TA41 PO; -BENI20TA26 PO; +DIGO0.25 PO; +DILT240C44 PO; +DONE10TA7 PO; +DULO1CAP3 PO; -DULO20 PO; -FOLI5CAP PO; +FOLI800T PO; +HUMALOG SQ; -HUMALOGP SQ; +HYDR-3583 PO; -LANO0.2510 PO; +LANTUS2P SQ; -LANTUSP SQ; -LEVO.1 PO; +LEVO.15 PO; -LORTA5 PO; -MAGN400T PO; +MAGN400T24 PO; +METH0.35; +METH25IN11 SQ; +OLME1TAB5 PO; -OMPR20CCR PO; -TRAV0.00 EACH EYE; -VICT18IN SQ; -VITA200017 PO
[2017-04-18 04:31] VITALS: BP 142/65; PULSE 81; RESP 18; TEMP 98; O2SAT 96
--- NOTE | 2017-04-18 04:46 | PD ---
HPI Chief Complaint: Fall Time Seen by Provider: 04:36 Travel History International Travel<30 days: No Contact w/Intl Traveler<30days: No Traveled to known affect area: No History of Present Illness HPI 76-year-old male who had a trip and fall at the hospice center and injured his right elbow. He states he is having pain over that area and has a cut. He states he thinks he was sent here for his cut to be repaired. He states he does not think he hit his head and he knows he did not black out. He denies any other concurrent complaints. He states he would like to remain with hospice care but agrees to get his cut repaired and x-rayed. Quality pain is sharp. Severity is moderate. Location is right elbow. PFSH Past Medical History Hx Anticoagulant Therapy: Yes Arthritis: Yes (connective tissue issues) Asthma: Yes Atrial Fibrillation: Yes Anxiety: Yes Depression: Yes Heart Rhythm Problems: Yes (afib) Cancer: Yes (skin, liver cancer (per EMS)) Cardiac Catheterization: Yes Cardiovascular Problems: Yes High Cholesterol: Yes Chemotherapy: No Chest Pain: Yes Congestive Heart Failure: Yes COPD: Yes Cerebrovascular Accident: Yes Coronary Artery Disease: Yes Diabetes: Yes (Metformin) Patient Takes Glucophage: Yes (per patient) Diminished Hearing: No Endocrine: Yes Gastrointestinal Disorders: Yes GERD: Yes Glaucoma: Yes Genitourinary: Yes Headaches: Yes (ONCE IN A WHILE) Hiatal Hernia: Yes Heparin Induced Thrombocytopen: No Hypertension: Yes (UNDER CONTROL) Immune Disorder: No Kidney Stones: No Medical other: Yes (chronic back pain) Musculoskeletal: Yes (joint pain) Neurologic: Yes (concussion, fibromyalgia) Psychiatric: Yes Reproductive: No Respiratory: Yes (dry mouth) Pancreatitis: Yes ((Per EMS)) Radiation Therapy: No Seizures: No Sickle Cell Disease: No Sleep Apnea: Yes Thyroid Disease: Yes Ulcer: No Tetanus Vaccination: Unknown Past Surgical History Abdominal Surgery: Yes (PROSTATE BIOPSY) Arteriovenous Shunt: No Cardiac Surgery: Yes (cardiac catherization, angioplasty) Ear Surgery: No Endocrine Surgery: No Eye Surgery: Yes (laser both eyes for glaucoma) Genitourinary Surgery: No Gynecologic Surgery: Yes (prostate biospy) Insulin Pump: Yes Neurologic Surgery: No Oral Surgery: Yes (teeth extraction) Thoracic Surgery: No Other Surgery: Yes (SKIN CANCER REMOVED FROM CHEEK.) Social History Alcohol Use: No Tobacco Use: No Substance Use: No Allergies-Medications (Allergen,Severity, Reaction): Coded Allergies: levetiracetam (Verified Allergy, Unknown, 04/18/17) Reported Meds & Prescriptions Reported Meds & Active Scripts Active Reported Rasuvo (Methotrexate (Antirheumatic)) 20 Mg/0.4 Ml Inj Humalog Inj (Insulin Human Lispro) 1,000 Unit/10 Ml Vial 70 Units SQ BID Lantus Inj (Insulin Glargine) 1,000 Unit/10 Ml Vial 70 Units SQ BID Methotrexate 25 mg/ml Vial (Methotrexate Sodium/Pf) 25 Mg/Ml Vial 6 SQ Synthroid (Levothyroxine Sodium) 150 Mcg Tab 150 Mcg PO DAILY Olmesartan-Hydrochlorothiazide 20-12.5 Mg Tab 1 Tab PO DAILY Meclizine (Meclizine HCl) 25 Mg Tab 25 Mg PO TID PRN Magnesium (Magnesium Oxide) 400 Mg Tablet 1 Tab PO BID Hydrocodone-Acetaminophen 10-325 mg Tab 1 Tab PO Q8HR PRN Gabapentin 600 Mg Tab 600 Mg PO TID Folic Acid 0.8 Mg Tab 1,000 Mcg PO DAILY Eliquis (Apixaban) 5 Mg Tab 5 Mg PO BID Duloxetine DR (Duloxetine HCl) 60 Mg Capdr 60 Mg PO DAILY Donepezil 10 Mg Tab 10 Mg PO DAILY Diltiazem CD 24 HR 240 Mg Caper 240 Mg PO DAILY Digoxin 0.25 Mg Tab 0.25 Mg PO DAILY Atorvastatin (Atorvastatin Calcium) 40 Mg Tab 40 Mg PO HS Review of Systems Except as stated in HPI: all other systems reviewed are Neg Physical Exam Narrative General: 76 y/o patient in no apparent distress Skin: trauma noted to right elbow with laceration Eyes: Pupils equal NECK: no pain with palpation and range of motion in midline Cardiovascular: Regular rate and rhythm Respiratory: Normal respiratory effort noted, clear to auscultation bilaterally Abdomen: soft, nontender, nondistended Extremities: Pain with palpation of right elbow, neurovascularly intact, no pain with rom of other joints Neuro: awake, alert, sensation and motor grossly intact Data Data Last Documented VS Vital Signs Date Time Temp Pulse Resp B/P (MAP) Pulse Ox O2 Delivery O2 Flow Rate FiO2 04/18/17 04:31 98.0 81 18 142/65 (90) 96 Orders Orders Elbow, Complete (4 Vws) (04/18/17 ) Ed Discharge Order (04/18/17 05:17) [facility] Medical Decision Making Medical Screen Exam Complete: Yes Emergency Medical Condition: Yes Medical Record Reviewed: Yes (pmh confirmed) Interpretation(s) elbow no fracture Differential Diagnosis Fracture, laceration, sprain Narrative Course Will check right elbow x-ray and have mid-level repair laceration xray no fracture, laceration repaired, patient agrees to go back to hospice without further workup here Diagnosis Primary Impression: Elbow laceration Qualified Codes: S51.011A - Laceration without foreign body of right elbow, initial encounter Patient Instructions: General Instructions Additional Instructions: return as needed, have sutures removed in one week Med/Other Pt SpecificInfo: No Change to Meds Disposition: 03 DISCHARGE TO SNF (hospice) Condition: Stable Michelle Tinsley MD Apr 18, 2017 04:46
--- NOTE | 2017-04-18 05:09 | RADRPT ---
EXAM DATE/TIME: 04/18/2017 04:48 [facility] COMPARISON: No previous studies available for comparison. INDICATIONS : Post fall- Pt fell ont right arm- Laceration to lateral elbow MEDICAL HISTORY : Hiatal hernia. Pancreatitis. Hypercholesterolemia. GERD, Fibromyalgia, A-Fib, Skin cancer, Liver cancer, CHF SURGICAL HISTORY : cardiac cath ENCOUNTER: Initial ACUITY: 1 day PAIN SCORE: 7/10 LOCATION: Right Elbow FINDINGS: Multiple view examination of the right elbow demonstrates no soft tissue swelling, joint effusion, or fracture. The osseous structures are in normal alignment. Bony mineralization is normal. No radio paque foreign bodies. Angiocath in the antecubital fossa. CONCLUSION: The osseous structures about the elbow are grossly intact. Dae Hebert MD on April 18, 2017 at 5:07 Board Certified Radiologist. This report was verified electronically.
--- NOTE | 2017-04-18 05:12 | PD ---
Physical Exam Date Seen by Provider: Apr 18, 2017 Time Seen by Provider: 05:11 Narrative Skin: There is a 3 cm laceration to the right elbow. Steri-Strips in place. Data Data Last Documented VS Vital Signs Date Time Temp Pulse Resp B/P (MAP) Pulse Ox O2 Delivery O2 Flow Rate FiO2 04/18/17 04:31 98.0 81 18 142/65 (90) 96 Orders Orders Elbow, Complete (4 Vws) (04/18/17 ) MDM Medical Record Reviewed: Yes Supervised Visit with RUBY: Yes Differential Diagnosis MDM: High Differential diagnoses: Fracture, sprain, strain, dislocation, contusion, neurovascular injury Narrative Course Patient's lacerations closed with catrina Procedures Procedure Narrative LACERATION LOCATION: Right elbow LENGTH: 3 cm NUMBER OF STITCHES/CATRINA: 4 REPAIR: The area of the laceration was prepped with Betadine and sterilely draped. The laceration was infiltrated with 1% lidocaine. The wound was copiously irrigated and explored without evidence of foreign body, tendon injury or neurovascular injury. The wound was closed using catrina. This was a single layer repair. A sterile dressing was applied. The patient was advised to keep the dressing clean and dry. Patient tolerated the procedure well. Shan Jennings Apr 18, 2017 05:12
== END 2017-04-18 10:13 ==
LOC: NEPC 04:24
DX: S51.011A Laceration without foreign body of right elbow, initial encounter (principal); E11.9 Type 2 diabetes mellitus without complications; I11.0 Hypertensive heart disease with heart failure; I50.9 Heart failure, unspecified; J44.9 Chronic obstructive pulmonary disease, unspecified; E07.9 Disorder of thyroid, unspecified; J45.909 Unspecified asthma, uncomplicated; W01.0XXA Fall on same level from slipping, tripping and stumbling without subsequent striking against object, initial encounter; Y92.129 Unspecified place in nursing home as the place of occurrence of the external cause
CPT/HCPCS: 12002; 73080